=== PATIENT | male | born 1975 | race African-American/Black ===

== ENCOUNTER 2021-10-15 10:28 | Emergency (ER) | payer OTHER ==
[~2021-10-15] VITALS: Ht 170.2 cm; Wt 102.1 kg
--- NOTE | 2021-10-15 10:28 | NUR ---
CARDIOPULMONARY ARREST; Jabari GUTIERRES RCP AND David GUTIERREZ RCP ATTENDING; INTUBATION ASSIST; CO2 DETECTOR; ETT SECUREMENT VIA ISIDRO/ANCHORFAST; AIRWAY MANAGEMENT; AMBU BAG DEPRESSION; CHEST COMPRESSION; ETCO2 DIAGNOSTIC MONITORING
--- NOTE | 2021-10-15 10:28 | NUR ---
46 y/o male biba from home, per amr, family called 911 for c/o general malaise. pt had witness fall to ground and was unresponsive. estimated downtime of 20 minutes. amr started cpr enroute and gave 5 epi in the field, with a total of 12 of epi, 1 sodium bicarb and 2 of calcium chloride. pt was PEA on arrival and PEA when pronouced time of . pmh: htn nka
[2021-10-15 10:36] VITALS: BP 0/0
--- NOTE | 2021-10-15 10:53 | NUR ---
time of called at 1053 per terri cueto
--- NOTE | 2021-10-15 10:58 | NUR ---
[employer] contacted at this time. spoke with marilin, pt is potential client for organ donation. reference number: [id number]
--- NOTE | 2021-10-15 11:14 | NUR ---
[employer] sales associate contacted at this time, spoke with Barbara, [employer] investigator will be giving a call back.
--- NOTE | 2021-10-15 11:58 | NUR ---
spoke with deputy zavaleta, confirmation number [id number]. press bucker states pt may be possible case, they will contact family for further information.
--- NOTE | 2021-10-15 12:40 | NUR ---
per kareyutsuad zavaleta, transport for salesperson [employer] will be here 1-1.5hrs. per waqar, pt can be moved to separate room, transport was notified of room number 128 for poultry picker.
--- NOTE | 2021-10-15 13:09 | NUR ---
pt moved by emt 2x to bed 128 at this time
--- NOTE | 2021-10-15 16:36 | NUR ---
[facility] OFFICE PICKUP PT IN ROOM 128. 13:09-ALL INFO/PAPPER WORK GIVEN TO MINE SUP
== END 2021-10-15 10:53 ==
LOC: MED 10:28
DX: I46.9 Cardiac arrest, cause unspecified (principal); I10 Essential (primary) hypertension
CPT/HCPCS: 31500; 92950; 99285